=== PATIENT | female | born 1970 | race Caucasian/White ===

== ENCOUNTER → 2016-11-14 | Outpatient (CLI) | payer OTHER ==
[~2016-11-14] MED LIST: LEVOTHYROXIN0.075 MG PO; LORADAMED10 MG PO; MAXZIDE 25 MG-31 TAB PO; MUCINEX D 600 M1 TER PO; NEIGHBOR P PO; PERCOCET 650 MG1 TAB PO; QNASL80 MCG/Act NS; SINGULAIR 10 MG10 MG PO; TYLENOL 8 HOUR650 MG PO; VITAMIN D1000 IU PO; VITAMIN D32000 IU PO
--- NOTE | 2016-11-17 11:13 | RADIOLOGY REPORT PS360 ---
DIG MAMM-SCREEN ISAAC W/CAD CAD Screening COMPARISON: Digital mammograms 11/11/2014 and 11/12/2015 INDICATION: There is no personal or family history of breast cancer TECHNIQUE: Standard CC and MLO images were obtained. R2 CAD reviewed. FINDINGS: There is a markedly dense and heterogenic parenchymal pattern lessening the sensitivity of mammography. The findings are bilateral and symmetrical. There is no new or suspicious lesion in either breast and no suspicious microcalcifications. IMPRESSION: Markedly dense parenchymal pattern with no suspicious lesion seen recommend yearly follow-up BI-RADS CATEGORY: 1_Negative RECOMMENDED FOLLOWUP: 12M 12 MONTH FOLLOW-UP (A letter has been sent to the patient regarding results of the study.)
== END ==
LOC: RAD 15:54
DX: Z12.31 Encounter for screening mammogram for malignant neoplasm of breast (principal)
CPT/HCPCS: G0202